=== PATIENT | female | born 1950 | race Caucasian/White ===

== ENCOUNTER 2019-06-24 19:57 | Inpatient (IN) | payer BC ==
--- NOTE | 2019-06-24 23:03 | RAD ---
EXAM: Portable chest PROVIDED CLINICAL HISTORY: Shortness of breath COMPARISON: None FINDINGS: Cardiac and mediastinal silhouette is within normal limits. No focal consolidation, pleural fluid or pneumothorax evident. Vascular calcification is seen involving the aortic arch. IMPRESSION: No evidence for an acute cardiopulmonary process.
[2019-06-24 23:05] LABS: #Basophils 0.1 thou/uL (0.0-0.2); #Lymphocytes 1.1 thou/uL (1.20-3.40); #Monocytes 0.4 thou/uL (0.11-0.59); #Neutrophils 15.6 thou/uL (1.40-6.50); %Basophils 0.3 % (0.0-1.0); %Eosinophils 0.1 % (0.0-10.0); %Lymphocytes 6.5 % (21.0-51.0); %Neutrophils 91.1 % (42.0-75.0); Hemoglobin 15.4 g/dL (12.0-16.0); Mean Corpuscular HGB CONC 33.3 g/dL (32.0-36.0); Mean Corpuscular Hemoglobin 32.3 pg (27.0-31.0); Platelet Count 238 thou/uL (130-400); RBC Distribution Width 12.4 % (11.5-14.5); Red Blood Cell (RBC) Count 4.77 mill/uL (4.20-5.40); White Blood Cell (WBC) Count 17.1 thou/uL (4.8-10.8)
[2019-06-24 23:24] LABS: ALT (SGPT) 17 U/L (8-55); AST (SGOT) 15 U/L (5-34); Albumin 4.6 g/dL (3.4-4.8); Alkaline Phosphatase 100 U/L (40-110); Anion Gap 14 mmol/L (10-20); BUN (Urea Nitrogen) 10 mg/dL (9.8-20.1); Bilirubin, Total 0.5 mg/dL (0.2-1.2); Calc. Creatinine Clearance 0 mL/min (70-130); Calcium 9.4 mg/dL (7.8-10.44); Carbon Dioxide 26 mmol/L (23-31); Chloride 99 mmol/L (98-107); Estimated GFR-MDRD Greater than 90; Globulin 2.9 g/dL (2.4-3.5); Glucose 154 mg/dL (80-115); Potassium 3.6 mmol/L (3.5-5.1); Protein, Total 7.5 g/dL (6.0-8.3); Sodium 135 mmol/L (136-145)
[2019-06-24] MEDS ORDERED: Albuterol Sulfate 2.5 mg/3 ml Neb ONE (23:48)
[2019-06-24 23:52] LABS: CKMB 1.9 ng/mL (0-6.6)
[2019-06-25] MEDS ORDERED: methylPREDNISolone Sod Succ/PF 125 MG/2 ML VIAL ONE (00:13)
[2019-06-25] MEDS ORDERED: cefTRIAXone\\ROCEPHIN 2 GM VIAL ONE (00:13)
[2019-06-25] MEDS ORDERED: Aspirin Chewable 81 MG TAB ONE (00:13)
[2019-06-25] MEDS ORDERED: Bacteriostatic Water 30 ML VIAL FS PRN (01:16)
[2019-06-25 02:09] VITALS: BMI 25.2
[2019-06-25 02:44] LABS: Troponin I 0.321 ng/mL (< 0.028)
[2019-06-25] MEDS ORDERED: Enoxaparin Sodium 80 MG/0.8 ML SYRINGE SC SCH (03:15)
[2019-06-25] MEDS: methylPREDNISolone Sod Succ 40 MG VIAL IVP SCH ×3 (05:25→19:06)
[2019-06-25] MEDS ORDERED: methylPREDNISolone Sod Succ/PF 125 MG/2 ML VIAL IVP SCH (06:00)
[2019-06-25] MEDS ORDERED: ALPRAZolam 0.25 MG TAB PO PRN (08:53)
[2019-06-25] MEDS ORDERED: Hydrochlorothiazide 25 MG TAB PO SCH (09:00)
--- NOTE | 2019-06-25 09:11 | CT ---
PRELIMINARY REPORT/[facility]/EMERGENCY AFTER HOURS PROCEDURE: EXAM: CTA Chest with Intravenous Contrast CLINICAL HISTORY: SOB BEGAN THIS AFTERNOON HX ASTHMA 0.55 DDIMER PT. SMOKE TECHNIQUE: Axial CTA images of the chest with intravenous contrast. MIP reconstructed images were created and re viewed. CONTRAST: With; ISOVUE 370,100mL COMPARISON: None provided. FINDINGS: PULMONARY ARTERIES No intraluminal filling defect suspicious for PE. AORTA No thoracic aortic aneurysm or dissection. LUNGS The lungs are clear. No pulmonary mass. No focal airspace consolidation. PLEURAL SPACES No pleural effusion. No pneumothorax. HEART AND MEDIASTINUM No cardiomegaly. No significant pericardial effusion. LYMPH NODES No lymphadenopathy. BONES No focal osseous abnormality or acute fracture. CHEST WALL AND UPPER ABDOMEN There is a cystic area in the left kidney measuring about 1.7 cm. MISCELLANEOUS: There is a 2 x 2.5 cm nodular density in the right thyroid gland. IMPRESSION: 1. There is a 2 x 2.5 cm nodular density in the right thyroid gland. 2. There is a cystic area in the left kidney measuring about 1.[address] evidence of pulmonary embolism. ELECTRONICALLY SIGNED BY: Ana Maria Washington MD Jun 25, 2019 1:12:29 AM STATISTICS PROFESSOR This report is intended for review by the ordering physician only, in accordance of law. If you recei ve this report in error, please call [facility] at [phone]. FINAL REPORT CT ANGIOGRAM CHEST WITH CONTRAST: HISTORY: Shortness of breath. COMPARISON: None. FINDINGS: CT angiogram chest performed after the intravenous administration of contrast. 3D rendering was provi ded. Findings and impression are concordant with the preliminary report by [facility]. POS: OFF
[2019-06-25] MEDS: Atorvastatin Calcium 20 MG TAB PO SCH (09:22)
[2019-06-25] MEDS: Losartan 25 MG TAB PO SCH (09:23)
[2019-06-25] MEDS ORDERED: Regadenoson 0.4 MG/5 ML SYRINGE ONE (09:25)
[2019-06-25] MEDS ORDERED: Loratadine 10 MG TAB PO SCH (10:30)
[2019-06-25] MEDS ORDERED: Sodium Chloride 0.9% 500 ML IV SCH (10:30)
[2019-06-25] MEDS ORDERED: Acetaminophen 325 MG TAB PO PRN (11:11)
[2019-06-25] MEDS ORDERED: Ondansetron PF 4 MG/2 ML Vial IVP PRN (11:11)
[2019-06-25] MEDS ORDERED: Ondansetron ODT 4 MG TAB PO PRN (11:11)
[2019-06-25] MEDS ORDERED: Calcium Carbonate 500 MG ChewTAB PO PRN (11:11)
--- NOTE | 2019-06-25 11:44 | HP ---
PRIMARY CARE PHYSICIAN: Dr. Jono Stewart. CHIEF COMPLAINT: Shortness of breath. HISTORY OF PRESENT ILLNESS: The patient is a 68-year-old female with asthma, hypertension, and hyperlipidemia, who presented to the emergency room with above complaints. The shortness of breath started yesterday afternoon. It is progressively getting worse. She was short of breath on minimal exertion. She also had dry cough. No orthopnea or paroxysmal nocturnal dyspnea reported. She had intermittent chest tightness along with wheezing as well. No sick contacts, fever, or chills reported. She denies recent immobilization travel. She tried using inhaler without much relief. She then presented to the emergency room. In the emergency room, her initial O2 saturation was 88% on room air with temperature of 98.5, respirations of 19, pulse of 80, blood pressure of 188/79. Her O2 saturation at the time of my evaluation is 91% on 2 L nasal cannula. PAST MEDICAL HISTORY: 1. Hypertension. 2. Asthma. 3. Hyperlipidemia. 4. Tobacco dependence. 5. Vulvar cancer status post vulvectomy. PAST SURGICAL HISTORY: 1. Vulvectomy. 2. Colonoscopy. 3. Breast biopsy. ALLERGIES: NO KNOWN DRUG ALLERGIES. MEDICATIONS: Current home medications; 1. Albuterol inhaler as needed. 2. Losartan-hydrochlorothiazide 100/12.5 daily. 3. Pravastatin 80 mg daily. FAMILY HISTORY: Father with diabetes, skin cancer. Mother with hypertension, coronary artery disease. SOCIAL HISTORY: The patient currently lives at home with her family. She continues to smoke on and off. She is full code and makes her own decision without help of her . REVIEW OF SYSTEMS: All other review of systems was reviewed and were found negative. PHYSICAL EXAMINATION: VITAL SIGNS: As discussed above. GENERAL: A 68-year-old female, anxious, in mild respiratory distress, able to complete short phrases. HEENT: Head, atraumatic and normocephalic. Sclerae anicteric. Moist mucous membranes. No oral lesion. NECK: Supple. No JVD appreciated. No carotid bruit. LUNGS: Mild accessory muscle use with scattered rhonchi and wheezing. No rales appreciated. HEART: S1 and S2 present. Regular. No rubs or gallops. ABDOMEN: Soft, nontender. Bowel sounds present. No rebound or guarding. No costovertebral angle tenderness. EXTREMITIES: No edema or calf tenderness. NEUROLOGY: Grossly nonfocal. Moves all 4 extremities. PSYCHIATRY: Alert, awake, and oriented x3. SKIN: Warm and dry. LYMPH NODES: No palpable lymph nodes in the neck. PERIPHERAL VASCULAR: Radial pulses palpable bilaterally. MUSCULOSKELETAL: No joint swelling or tenderness. LABORATORY FINDINGS: CBC showed WBC 17.1 with hemoglobin 15.4, hematocrit 46.3, platelet of 238. D-dimer was 0.55. Chemistry showed sodium of 135, potassium of 3.6, chloride 99, bicarb 26, BUN 10, creatinine 0.62. Troponin was 0.380. Lactic acid 1.2. BNP 11.4. IMAGING STUDIES: Chest x-ray by my review was negative for infiltrate or edema. CT angiogram of the chest was negative for pulmonary embolism. It showed nodule in the right thyroid gland and left renal cyst. EKG by my review showed sinus rhythm without significant ST-T wave changes. IMPRESSION: 1. Acute hypoxic respiratory failure. 2. Asthma exacerbation. 3. Elevated troponin suspected due to type 2 myocardial infarction. 4. Hyponatremia. 5. Hypertension. 6. Hyperlipidemia. PLAN: The patient will be monitored on the telemetry unit. She will require 2 to 3 days for stabilization. She still is saturating 91% on 2 L nasal cannula. We will start her on IV steroids along with empiric antibiotics as well. She received a dose of ceftriaxone in the emergency room. She also received one dose of Lovenox in the ER. We will consult Cardiology and Pulmonary. Recheck labs in a.m. Repeat troponin in a.m. We will add Mucinex. Resume selected home medications. Echocardiogram will be obtained. The patient and the family understand the above plan of care. Job ID: [id number]
[2019-06-25] MEDS: Fluticasone Propionate Nasal Spray 16 gm Bottle NASAL SCH (14:39)
--- NOTE | 2019-06-25 14:57 | NM ---
MYOCARDIAL PERFUSION SCAN: The patient was given 10 mCi of technetium sestamibi for rest imaging and 27 mCi for stress imaging. Patient was stressed according to Lexiscan protocol. INDICATION: Shortness of breath. Abnormal CIE. Left ventricle was imaged with SPECT imaging. CT attenuation images obtained. FINDINGS: Normal activity seen on stress and rest images. No evidence of reversible ischemia. Wall motion is normal. Ejection fraction recorded at over 80%. IMPRESSION: Negative sestamibi stress test. POS: DANIELLA
[2019-06-25] MEDS: guaiFENesin ER 600 MG TAB PO SCH (20:19)
[2019-06-25] MEDS: Saccharomyces boulardii 250 MG CAP PO SCH (20:19)
[2019-06-25] MEDS: Famotidine 20 MG TAB PO SCH (20:19)
[2019-06-25] MEDS: ALPRAZolam 0.25 MG TAB PO PRN (20:20)
[2019-06-26] MEDS: cefTRIAXone\\ROCEPHIN 1 GM in Sodium Chloride 0.9% 100 ML IVPB SCH (00:20)
--- NOTE | 2019-06-26 01:06 | CON ---
DATE OF CONSULTATION: 06/25/2019 SERVICE: Pulmonary Medicine. REASON FOR CONSULTATION: Shortness of breath. HISTORY OF PRESENT ILLNESS: The patient is a 68-year-old white female with past medical history significant for absolutely nothing. She has about a 10-15 pack year history of smoking. She has no formal diagnosis of COPD or asthma. She is not on any inhalers at home. Usually, she does not have any dyspnea on exertion, or significant wheezing or difficult difficulty breathing. Either way, she was in her usual state of health until Thursday. At that point, she started having upper respiratory tract congestion, sniffing, sneezing and itchy watery eyes. She had increasing congestion through the nose and mouth. She then over the course of the week developed a little bit of increasing wheezing, dyspnea that limited her activity, and a cough. Towards the end of the week, it is productive of yellow phlegm. She had more severe dyspnea that limited her activities. As such, she presented to the emergency department. There are some routine laboratory workup suggested that she had elevated troponin. As such, she spent the last day and a half getting some stress test. She has no complaints of fevers or chills. She did not have any nausea, vomiting or diarrhea. She does not have any hot, red swollen joints, rashes or arthralgias. Otherwise, she is in her usual state of health. Since being in the hospital, she got put on steroids, antibiotics, and nebulized medications, and she feels nearly 100% better. She has still a little bit of rattling in the chest, but does not have any significant dyspnea that limits her activity at this point, although she has not been too terribly active, because she has been tethered to the wall with oxygen. PAST MEDICAL HISTORY: 1. Hypertension. 2. Dyslipidemia. 3. Tobacco abuse. 4. Possible history of asthma, not currently on medications. 5. Vulvar cancer, status post vulvectomy. PAST SURGICAL HISTORY: 1. Vulvectomy. 2. Colonoscopy. 3. Breast biopsy. ALLERGIES: NO KNOWN DRUG ALLERGIES. MEDICATIONS: List of her inpatient medications were reviewed. No specific updates were made at this time. FAMILY HISTORY: Noncontributory. SOCIAL HISTORY: She quit smoking 5 days ago, but prior to that 15 pack year history of smoking. Denies any significant alcohol or illicit drug use. She has no exposure to chemicals, dust, asbestos, or tuberculosis. REVIEW OF SYSTEMS: General, head, ears, eyes, nose, throat, cardiovascular, respiratory, GI, , musculoskeletal, neurologic, and skin is negative except as mentioned in the HPI. PHYSICAL EXAMINATION: VITAL SIGNS: Afebrile, pulse 92, blood pressure 145/53, respirations 18, saturation 92% on 1 L nasal cannula. GENERAL: The patient is awake and alert, in no apparent distress. LUNGS: There is excellent air entry. There is a slightly prolonged expiratory phase. No wheezing is appreciated. Careful auscultation did not demonstrate any crackles though she had extensive rhonchi throughout bilateral lung hernandez. HEART: Normal rate. Regular. ABDOMEN: Soft, nontender, nondistended. Bowel sounds are positive. MUSCULOSKELETAL: No cyanosis or clubbing. There is no pitting in the bilateral lower extremities. NEUROLOGIC: Grossly nonfocal. : No [place]. LABORATORY DATA: WBC 17.1, hemoglobin 15.4, platelets 238,000. D-dimer 0.55. Troponin is gently up trending to 0.380. BNP 11, lactate 1.2. Liver function studies and basic metabolic profile are otherwise unremarkable. IMAGING: Echocardiogram demonstrates normal ejection fraction. No significant valvular abnormalities are appreciated. There is no significant diastology. Nuclear stress test demonstrates full negative sestamibi stress test. CTA of the chest demonstrates significant mucus plugging throughout bilateral lung hernandez. It is more severe in the dependent regions of the lung. There is thickening of the bronchi. That being said, I do not see any overt consolidating changes present. There is certainly no PE. ASSESSMENT: 1. Acute hypoxic respiratory failure, mild. 2. Acute bronchitis. 3. [id number] myocardial infarction. DISCUSSION AND PLAN: The patient can complete a 5-day course of antibiotics and steroids directed at lung related issues. She can go out of the hospital on p.r.n. nebulized medications, or an albuterol HFA pump per her discretion. She can follow up with Pulmonary in the outpatient setting to determine whether or not additional interventions and underlying lung disease is required. That being said, for the time being, I am inclined to believe this is a one of acute bronchitis event and it is less likely to represent asthma or severe chronic underlying disease. Certainly, within the next 6 months to 2 years, if she has a repeat event, additional investigation would be warranted. Pulmonary will follow, intermittently during this hospital stay. That being said, from my perspective, as soon as she is off oxygen, and her dyspnea is close to baseline, she can be considered for discharge. If she is in-house on Thursday, I will see her then. Should she have increasing respiratory difficulties, please notify me sooner. Job ID: [id number]
[2019-06-26] MEDS ORDERED: Enoxaparin Sodium 80 MG/0.8 ML SYRINGE SC SCH (01:15)
[2019-06-26 01:49] LABS: Anion Gap 13 mmol/L (10-20); BUN (Urea Nitrogen) 21 mg/dL (9.8-20.1); Calc. Creatinine Clearance 80 mL/min (70-130); Calcium 9.7 mg/dL (7.8-10.44); Carbon Dioxide 28 mmol/L (23-31); Chloride 100 mmol/L (98-107); Estimated GFR-MDRD 82; Glucose 175 mg/dL (80-115); Magnesium 2.4 mg/dL (1.6-2.6); Potassium 3.3 mmol/L (3.5-5.1); Sodium 138 mmol/L (136-145)
[2019-06-26 05:23] LABS: ALT (SGPT) 18 U/L (8-55); AST (SGOT) 22 U/L (5-34); Albumin 4.1 g/dL (3.4-4.8); Alkaline Phosphatase 84 U/L (40-110); Anion Gap 12 mmol/L (10-20); BUN (Urea Nitrogen) 22 mg/dL (9.8-20.1); Bilirubin, Total 0.3 mg/dL (0.2-1.2); Calc. Creatinine Clearance 85 mL/min (70-130); Calcium 9.6 mg/dL (7.8-10.44); Carbon Dioxide 29 mmol/L (23-31); Chloride 102 mmol/L (98-107); Estimated GFR-MDRD 88; Globulin 2.7 g/dL (2.4-3.5); Glucose 146 mg/dL (80-115); Magnesium 2.4 mg/dL (1.6-2.6); Potassium 3.5 mmol/L (3.5-5.1); Protein, Total 6.8 g/dL (6.0-8.3); Sodium 139 mmol/L (136-145)
[2019-06-26 05:39] LABS: Mean Corpuscular HGB CONC 33.4 g/dL (32.0-36.0); Mean Corpuscular Hemoglobin 32.6 pg (27.0-31.0); Mean Corpuscular Volume 97.6 fL (78.0-98.0); Platelet Count 238 thou/uL (130-400); RBC Distribution Width 12.6 % (11.5-14.5); Red Blood Cell (RBC) Count 4.61 mill/uL (4.20-5.40); White Blood Cell (WBC) Count 22.3 thou/uL (4.8-10.8)
[2019-06-26 06:10] LABS: Band 3 % (5-11); Lymphocytes 4 % (21-51); MDiff Complete? YES; Monocytes 4 % (0-10); Neutrophil 89 % (42-75); Platelet Morphology Comment Appears Adequate; RBC Morphology Normal
--- NOTE | 2019-06-26 06:12 | CON ---
DATE OF CONSULTATION: 06/25/2019 INDICATION FOR CONSULTATION: This is a 68-year-old female with no previous cardiac history that she is aware of, who has presented to the hospital after having increasing shortness of breath and has a history of COPD and had abnormal cardiac enzymes. We were asked to see her. 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 She used her inhaler, which did not work. When she tried a nebulizer, which she has had for quite some time, the machine itself did not work and she continued to have shortness of breath and she presented to the emergency room. She does have problems with allergies to cedar and also various environmental type materials such as hay and grass and she has had increasing shortness of breath and presented to the emergency room. She denied any chest pain. She has no previous history of cardiac problems, but the troponin I was 0.138 and then 0.321 and again 0.38. Her BNP was 11.4. She does have risk factors for coronary artery disease, which include continued tobacco abuse. She smokes 3 to 4 cigarettes a day and on the weekend, may smoke up to one-fourth to half pack a day. She smoked for about 30 years. She also has a history of hypertension. PAST MEDICAL HISTORY: Significant for COPD or restrictive airway disease, which is seasonal. She has a history of hyperlipidemia. She also has history of hypertension. She has had history of vulvar cancer with vulvectomy. SOCIAL HISTORY: She occasionally drinks beer. She continues to smoke cigarettes as noted above. FAMILY HISTORY: Noncontributory. ALLERGIES: SHE IS ALLERGIC TO SEASONAL MATERIALS, BUT NO DRUG ALLERGIES. MEDICATIONS: At home included: 1. Losartan. 2. Pravastatin. 3. Albuterol. REVIEW OF SYSTEMS: A 12-point review of systems is only positive for the shortness of breath. She denied any other significant complaints. PHYSICAL EXAMINATION: GENERAL: Reveals a well-developed, well-nourished female. She is in no acute distress. VITAL SIGNS: She is afebrile. Blood pressure is 168/85 and earlier was 157/68, heart rate is anywhere between 98 to 100 and shows a normal sinus rhythm, respiratory rate is about 18, and O2 saturations were stable. HEENT: Shows the head to be normocephalic and atraumatic. Carotid pulses are present. I did not hear any significant bruits. CHEST: Her chest has diffuse rhonchi throughout and expiratory wheezing, at least from the base jail up to the mid chest area. CARDIOVASCULAR: Reveals a regular rate and rhythm. I did not hear any significant murmurs, heaves, thrills, bruits, or rubs. ABDOMEN: Soft and nontender with positive bowel sounds. No organomegaly or masses are noted. Femoral pulses are present. EXTREMITIES: Showed no clubbing, cyanosis, or edema. Pedal pulses are present. The one on the right side is somewhat decreased compared to the left side, but pulses are present. NEUROLOGIC: There are no gross focal motor deficits. LABORATORY DATA: Shows a WBC of 17.1, hemoglobin 15.4, and platelet count 238,000. Sodium was 135, potassium 3.6, BUN was 10 with a creatinine 0.62, and blood sugar 154. I did not have any other blood sugar levels, this will need to be repeated. She does not give any history of having diabetes, but blood sugar is obviously elevated. Troponin I as noted above with a BNP of only 11.4. IMPRESSION AND PLAN: 1. Elderly female with chronic obstructive pulmonary disease exacerbation. She has continued to smoke. She was placed on antibiotics, most likely has some bronchitis as well as her allergies and this will be dealt with by the Primary Care Service. She has seen Dr. Elaine in the past and Pulmonary consult may be indicated. At least as an outpatient, she should follow up with Pulmonology and she has been strongly encouraged to stop smoking. 2. History of tobacco abuse. I did tell she absolutely needs to stop smoking altogether. 3. History of abnormal cardiac enzymes. This appears to be a type 2 myocardial infarction, most likely due to demand ischemia associated with the work of breathing with her severe chronic obstructive pulmonary disease exacerbation yesterday. 4. History of hypertension. May need to change her medications. I am not certain whether she got her medications for her hypertension yet or not, but obviously blood pressure is elevated and will need to be addressed also. 5. History of hypercholesterolemia. She is on pravastatin. We will need to check a cholesterol level to see whether or not the medication is adequate or not. If not, we will need to change medications or increase the dose. She has been placed on atorvastatin since being in the hospital. She has also been given Lovenox therapeutic dose of 70 mg for the abnormal cardiac enzymes. At this time, I would suggest she undergo stress testing. The enzymes are still indeterminate and if there is no indication that she has any ischemia, then she could be discharged and further evaluation could be done as an outpatient. If the stress test is grossly abnormal, then she may need to undergo further evaluation by cardiac catheterization once her pulmonary status is stable. Job ID: [id number]
[2019-06-26 06:21] LABS: CKMB 5.6 ng/mL (0-6.6)
[2019-06-26] MEDS: Enoxaparin Sodium 80 MG/0.8 ML SYRINGE SC SCH ×2 (08:55→20:09)
[2019-06-26] MEDS: Atorvastatin Calcium 20 MG TAB PO SCH (08:55)
[2019-06-26] MEDS: predniSONE 20 MG TAB PO SCH (08:55)
[2019-06-26] MEDS: Famotidine 20 MG TAB PO SCH ×2 (08:56→20:10)
[2019-06-26] MEDS: guaiFENesin ER 600 MG TAB PO SCH ×2 (08:56→20:10)
[2019-06-26] MEDS: Loratadine 10 MG TAB PO SCH (08:56)
[2019-06-26] MEDS: Losartan 25 MG TAB PO SCH (11:36)
--- NOTE | 2019-06-26 11:51 | PDOC.CPN ---
- Subjective Date: 06/26/19 Time: 11:55 Interval history: The pt seen and examined. No overnight events. No cardiac complaints. - Objective Allergies/Adverse Reactions: Allergies Allergy/AdvReac Type Severity Reaction Status Date / Time No Known Drug Allergies Allergy Verified 06/25/19 02:11 Visit Medications: Current Medications Acetaminophen (Tylenol) 650 mg PO Q4H PRN PRN Reason: Headache/Fever/Mild Pain (1-3) Albuterol/Ipratropium (Duoneb) 3 ml NEB Q4H PRN PRN Reason: SOB &/or Wheezing Albuterol/Ipratropium (Duoneb) 3 ml NEB [id number] [facility] Last Admin: 06/26/19 06:42 Dose: 3 ml Alprazolam (Xanax) 0.25 mg PO Q6H PRN PRN Reason: Anxiety Last Admin: 06/25/19 20:20 Dose: 0.25 mg Atorvastatin Calcium (Lipitor) 20 mg PO DAILY [facility] Last Admin: 06/26/19 08:55 Dose: 20 mg Calcium Carbonate (Tums) 1,000 mg PO Q4H PRN PRN Reason: Heartburn or Indigestion Diltiazem HCl (Cardizem) 30 mg PO ACHS [facility] Diltiazem HCl (Cardizem) 30 mg PO ONE [facility] Enoxaparin Sodium (Lovenox) 70 mg SC 0900,2100 [facility] Last Admin: 06/26/19 08:55 Dose: 70 mg Famotidine (Pepcid) 20 mg PO BID [facility] Last Admin: 06/26/19 08:56 Dose: 20 mg Fluticasone Propionate (Flonase Nasal [place]) 0 gm NASAL Q24HR [facility] Last Admin: 06/25/19 14:39 Dose: Not Given Guaifenesin (Mucinex) 600 mg PO Q12HR [facility] Last Admin: 06/26/19 08:56 Dose: 600 mg Ceftriaxone Sodium 1 gm/ (Sodium Chloride) 100 mls @ 200 mls/hr IVPB 0100 [facility] Last Admin: 06/26/19 00:20 Dose: 100 mls Loratadine (Claritin) 10 mg PO DAILY [facility] Last Admin: 06/26/19 08:56 Dose: 10 mg Nebivolol (Bystolic) 2.5 mg PO ONE [facility] Nebivolol (Bystolic) 2.5 mg PO DAILY [facility] Ondansetron HCl (Zofran Odt) 4 mg PO Q6H PRN PRN Reason: Nausea/Vomiting Ondansetron HCl (Zofran) 4 mg IVP Q6H PRN PRN Reason: Nausea/Vomiting Prednisone (Prednisone) 40 mg PO QAM[facility] Stop: 06/30/19 08:01 Last Admin: 06/26/19 08:55 Dose: 40 mg Saccharomyces Boulardii (Florastor) 250 mg PO [facility] Last Admin: 06/25/19 20:19 Dose: 250 mg Sodium Chloride (Flush - Normal Saline) 10 ml IVF PRN PRN PRN Reason: Saline Flush Sterile Water (Bacteriostatic Water) 1 ml FS PRN PRN PRN Reason: RECONSTITUTION Vital Signs & Weight: Vital Signs Temp Pulse Resp BP BP Pulse Ox 06/26/19 08:50 101/47 L 97 06/26/19 07:27 98.6 F 76 20 112/48 L 94 L 06/26/19 06:45 95 06/26/19 06:42 84 16 06/26/19 03:22 98.5 F 85 18 112/49 L 94 L 06/26/19 01:05 144 H 20 115/60 93 L 06/26/19 00:29 97.7 F 85 20 107/45 L 93 L Weight 147 lb - Physical Exam General: alert & oriented x3 HEENT: mucus membranes moist Neck: supple neck Cardiac: regular rate and rhythm, S1/S2 Lungs: clear to auscultation, decreased breath sounds Neuro: cranial nerve 2-12 intact Abdomen: unremarkable Extremities: no edema - Labs Result Diagrams: 06/26/19 04:42 06/26/19 04:42 Troponin/CKMB CK-MB (CK-2) 5.6 ng/mL (0-6.6) 06/26/19 04:42 Troponin I 0.154 ng/mL (< 0.028) H 06/26/19 04:42 - Telemetry Sinus rhythms and dysrhythmias: sinus rhythm - Assessment/Plan Assessment/Plan: 1. SOB - 2/2 acute bronchitis; Stress test and Echo were within normal ranges; the pt was recommended to f/u with Dr Elaine as outpt 2. Prox Afib - converted back to SR in a few hours; on Lovenox BID; Diltiazem was started from today; will start Bystolic 2.5mg qd from today 3. Asthma 4. Tobacco abuse 5. NSTEMI type 2 2/2 severe Bronchitis and cough - asymptomatic; normal stress test 6. HLD - on statin MAR reviewed
[2019-06-26] MEDS ORDERED: Nebivolol HCl 2.5 MG TAB PO SCH (12:00)
[2019-06-26] MEDS: ALPRAZolam 0.25 MG TAB PO PRN (12:58)
[2019-06-26] MEDS: Fluticasone Propionate Nasal Spray 16 gm Bottle NASAL SCH (12:59)
[2019-06-26] MEDS ORDERED: Nicotine 14 MG PATCH TD PRN (13:00)
--- NOTE | 2019-06-26 13:24 | PDOC.HOSPP ---
- Subjective Encounter Date: 06/26/19 Encounter Time: 12:00 Subjective: Patient seen and examined for Resp failure. Productive cough +. SOB improving. No fever or chills. No new complaints. Overnight events noted - Objective Vital Signs & Weight: Vital Signs (12 hours) Temp Pulse Resp BP Pulse Ox 06/26/19 11:35 98.4 F 96 28 H 142/61 H 94 L 06/26/19 08:50 101/47 L 97 06/26/19 07:27 98.6 F 76 20 112/48 L 94 L 06/26/19 06:45 95 06/26/19 06:42 84 16 06/26/19 03:22 98.5 F 85 18 112/49 L 94 L Weight Weight 147 lb I&O: 06/25/19 06/26/19 06/27/19 06:59 06:59 06:59 Intake Total 200 1320 240 Output Total 500 500 Balance -300 820 240 Result Diagrams: 06/26/19 04:42 06/26/19 04:42 EKG Reviewed by me: Yes (Tele SR) Hospitalist ROS - Review of Systems Respiratory: reports: cough, SOB with excertion, sputum, wheezing. denies: dry , shortness of breath, hemoptysis, pleuritic pain, other Cardiovascular: denies: chest pain, palpitations, orthopnea, paroxysmal noc. dyspnea, edema, light headedness, other - Medication Medications: Active Medications Generic Name Dose Route Start Last Admin Trade Name Freq PRN Reason Stop Dose Admin Albuterol/Ipratropium 3 ml 06/26/19 01:00 06/26/19 06:42 Duoneb NEB 3 ml [id number] [facility] Administration Alprazolam 0.25 mg 06/25/19 10:31 06/26/19 12:58 Xanax PO 0.25 mg Q6H PRN Administration Anxiety Atorvastatin Calcium 20 mg 06/25/19 09:00 06/26/19 08:55 Lipitor PO 20 mg DAILY [facility] Administration Enoxaparin Sodium 70 mg 06/26/19 09:00 06/26/19 08:55 Lovenox SC 70 mg 0900,2100 [facility] Administration Famotidine 20 mg 06/25/19 21:00 06/26/19 08:56 Pepcid PO 20 mg BID [facility] Administration Fluticasone Propionate 0 gm 02/29/20 13:00 06/26/19 12:59 Flonase Nasal [place] NASAL Not Given Q24HR [facility] Guaifenesin 600 mg 06/25/19 21:00 06/26/19 08:56 Mucinex PO 600 mg Q12HR [facility] Administration Ceftriaxone Sodium 1 gm/ 100 mls @ 200 mls/hr 06/26/19 01:00 06/26/19 00:20 Sodium Chloride IVPB 100 mls 0100 [facility] Administration Loratadine 10 mg 06/26/19 09:00 06/26/19 08:56 Claritin PO 10 mg DAILY [facility] Administration Nebivolol 2.5 mg 06/26/19 12:00 06/26/19 12:57 Bystolic PO 06/26/19 14:00 2.5 mg NOW [facility] Administration Prednisone 40 mg 06/26/19 08:00 06/26/19 08:55 Prednisone PO 06/30/19 08:01 40 mg QAM-WM [facility] Administration Saccharomyces Boulardii 250 mg 06/25/19 21:00 06/25/19 20:19 Florastor PO 250 mg HS [facility] Administration - Exam General Appearance: NAD Neck: supple, no JVD Heart: RRR, no gallops, no rubs, normal peripheral pulses Respiratory: no rales, no ronchi, rhonchi, wheezes Gastrointestinal: soft, non-tender, non-distended, normal bowel sounds Extremities: no cyanosis, no clubbing Neurological: cranial nerve grossly intact, no new deficit Psychiatric: normal affect, A&O x 3 Hosp A/P - Plan DVT proph w/SCDs IMPRESSION: 1. Acute hypoxic respiratory failure due to Acute Bronchitis/Asthma exacerbation. 2. New onset A flutter 3. Elevated troponin suspected due to type 2 myocardial infarction. 4. Hyponatremia. 5. Hypertension. 6. Hyperlipidemia. PLAN: Wean O2 Cont Steroids/Atbx Cont Nebs Q6h Lovenox 1 mg/kg - Patient understands the risk associated with anticoag Bystolic started Low dose ASA Cont other meds
[2019-06-26] MEDS: Aspirin 81 mg Enteric Coated Tablet PO SCH (18:13)
[2019-06-26] MEDS: Saccharomyces boulardii 250 MG CAP PO SCH (20:09)
[2019-06-27] MEDS: cefTRIAXone\\ROCEPHIN 1 GM in Sodium Chloride 0.9% 100 ML IVPB SCH (00:39)
[2019-06-27] MEDS: guaiFENesin ER 600 MG TAB PO SCH ×2 (08:55→21:59)
[2019-06-27] MEDS: Losartan 25 MG TAB PO SCH (08:55)
[2019-06-27] MEDS: Famotidine 20 MG TAB PO SCH ×2 (08:55→21:59)
[2019-06-27] MEDS: predniSONE 20 MG TAB PO SCH (08:56)
[2019-06-27] MEDS: Atorvastatin Calcium 20 MG TAB PO SCH (08:56)
[2019-06-27] MEDS: Enoxaparin Sodium 80 MG/0.8 ML SYRINGE SC SCH (08:57)
[2019-06-27] MEDS: Loratadine 10 MG TAB PO SCH (08:57)
[2019-06-27] MEDS: Nebivolol HCl 2.5 MG TAB PO SCH (10:48)
--- NOTE | 2019-06-27 12:46 | PDOC.CPN ---
- Subjective Date: 06/27/19 Time: 12:49 Interval history: The pt seen and examined. No overnight events. No cardiac complaints. She is willing to quit smoking - Objective Allergies/Adverse Reactions: Allergies Allergy/AdvReac Type Severity Reaction Status Date / Time No Known Drug Allergies Allergy Verified 06/25/19 02:11 Visit Medications: Current Medications Acetaminophen (Tylenol) 650 mg PO Q4H PRN PRN Reason: Headache/Fever/Mild Pain (1-3) Albuterol/Ipratropium (Duoneb) 3 ml NEB Q4H PRN PRN Reason: SOB &/or Wheezing Albuterol/Ipratropium (Duoneb) 3 ml NEB [id number] Last Admin: 06/27/19 12:18 Dose: 3 ml Alprazolam (Xanax) 0.25 mg PO Q6H PRN PRN Reason: Anxiety Last Admin: 06/26/19 12:58 Dose: 0.25 mg Aspirin (Ecotrin) 81 mg PO QPM-[facility] Last Admin: 06/26/19 18:13 Dose: 81 mg Atorvastatin Calcium (Lipitor) 20 mg PO DAILY [facility] Last Admin: 06/27/19 08:56 Dose: 20 mg Calcium Carbonate (Tums) 1,000 mg PO Q4H PRN PRN Reason: Heartburn or Indigestion Enoxaparin Sodium (Lovenox) 70 mg SC 0900,2100 [facility] Last Admin: 06/27/19 08:57 Dose: 70 mg Famotidine (Pepcid) 20 mg PO BID [facility] Last Admin: 06/27/19 08:55 Dose: 20 mg Fluticasone Propionate (Flonase Nasal [place]) 0 gm NASAL Q24HR [facility] Last Admin: 06/26/19 12:59 Dose: Not Given Guaifenesin (Mucinex) 600 mg PO Q12HR [facility] Last Admin: 06/27/19 08:55 Dose: 600 mg Ceftriaxone Sodium 1 gm/ (Sodium Chloride) 100 mls @ 200 mls/hr IVPB 0100 [facility] Last Admin: 06/27/19 00:39 Dose: 100 mls Loratadine (Claritin) 10 mg PO DAILY [facility] Last Admin: 06/27/19 08:57 Dose: 10 mg Losartan Potassium (Cozaar) 25 mg PO DAILY [facility] Last Admin: 06/27/19 08:55 Dose: 25 mg Nebivolol (Bystolic) 2.5 mg PO DAILY [facility] Last Admin: 06/27/19 10:48 Dose: 2.5 mg Nicotine (Nicoderm Patch) 14 mg TD Q24HR PRN PRN Reason: Smoking craving Ondansetron HCl (Zofran Odt) 4 mg PO Q6H PRN PRN Reason: Nausea/Vomiting Ondansetron HCl (Zofran) 4 mg IVP Q6H PRN PRN Reason: Nausea/Vomiting Prednisone (Prednisone) 40 mg PO [facility] Stop: 06/30/19 08:01 Last Admin: 06/27/19 08:56 Dose: 40 mg Saccharomyces Boulardii (Florastor) 250 mg PO [facility] Last Admin: 06/26/19 20:09 Dose: 250 mg Sodium Chloride (Flush - Normal Saline) 10 ml IVF PRN PRN PRN Reason: Saline Flush Sterile Water (Bacteriostatic Water) 1 ml FS PRN PRN PRN Reason: RECONSTITUTION Vital Signs & Weight: Vital Signs Temp Pulse Resp BP Pulse Ox 06/27/19 12:18 76 18 94 L 06/27/19 12:14 98.2 F 73 18 119/46 L 92 L 06/27/19 07:22 98.1 F 69 18 145/73 H 100 06/27/19 07:16 73 20 99 06/27/19 03:48 98.4 F 74 18 104/53 L 94 L Weight 147 lb - Physical Exam General: alert & oriented x3 HEENT: mucus membranes moist Neck: supple neck Cardiac: regular rate and rhythm, S1/S2 Lungs: decreased breath sounds, bibasilar rales Neuro: cranial nerve 2-12 intact Abdomen: unremarkable Extremities: no edema - Labs Result Diagrams: 06/26/19 04:42 06/26/19 04:42 Troponin/CKMB CK-MB (CK-2) 5.6 ng/mL (0-6.6) 06/26/19 04:42 Troponin I 0.154 ng/mL (< 0.028) H 06/26/19 04:42 - Telemetry Sinus rhythms and dysrhythmias: sinus rhythm - Assessment/Plan Assessment/Plan: 1. Prox Afib - converted back to SR in a few hours on 06/26/2019; remains in SR; On Bystolic 2.5mg qd; will d/c home with Eliquis 5mg BID; The coupon is given to the pt. d/c home with EVR for 2 wks. 2. SOB - 2/2 acute bronchitis; Stress test and Echo were within normal ranges; the pt was recommended to f/u with Dr Elaine as outpt 3. Asthma 4. Tobacco abuse - she is willing to quit smoking 5. NSTEMI type 2 2/2 severe Bronchitis and cough - asymptomatic; normal stress test 6. HLD - on statin MAR reviewed * The pt is stable to d/c home with 2-wk EVR. The pt will f/u with Dr Stone' office 1 wk after 2wk EVR Pt. seen and eval. by me. I agrew ith the A/P by the WHAT JOB TITLES MEAN. She is still congested but no further arrythmias.. I will see her in the office in about 3 weeks.
[2019-06-27] MEDS: Fluticasone Propionate Nasal Spray 16 gm Bottle NASAL SCH (16:27)
--- NOTE | 2019-06-27 17:01 | EKG ---
Test Reason : Blood Pressure : / mmHG Vent. Rate : 083 BPM Atrial Rate : 083 BPM P-R Int : 182 ms QRS Dur : 092 ms QT Int : 352 ms P-R-T Axes : 074 076 -89 degrees QTc Int : 413 ms Normal sinus rhythm Abnormal ECG No previous ECGs available Confirmed by DR. Mac HUANG ([id number]) on 06/27/2019 5:01:18 PM Referred By: MAE Confirmed By:DR. Mac HUANG
[2019-06-27] MEDS: Aspirin 81 mg Enteric Coated Tablet PO SCH (17:48)
--- NOTE | 2019-06-27 21:25 | PRG ---
DATE OF SERVICE: 06/27/2019 SERVICE: Pulmonary Medicine. INTERVAL HISTORY: The patient is doing really well from respiratory standpoint. Breathing comfortably. That being said, she is still having some challenging time liberating some of the mucus. From time to time, she feels a little bit short of breath and the nebulized medications she is getting give her comfort. At this point, we talked about possibly discharge from the hospital today, but she prefers to stay an additional day. She has been walking and had some degree of dyspnea that limits her activity. That being said, she is currently on room air and has no specific complaints otherwise. PHYSICAL EXAMINATION: VITAL SIGNS: Afebrile, pulse 66, blood pressure 132/63, respirations 18, and saturation 98%, currently on room air. GENERAL: The patient is awake and alert, in no apparent distress. LUNGS: Good air entry bilaterally. There is no wheezing present today. Minimal rhonchi noted, but it cleared with cough. Dependent crackles are slight. HEART: Normal rate, regular. ABDOMEN: Soft, nontender, nondistended. Bowel sounds are positive. MUSCULOSKELETAL: No cyanosis or clubbing. There is no pitting in the bilateral lower extremities. NEUROLOGIC: Grossly nonfocal. ASSESSMENT: 1. Acute hypoxic respiratory failure, resolved. 2. Acute bronchitis. 3. [id number] myocardial infarction. DISCUSSION AND PLAN: We will continue our nebulized medications, steroids, and antibiotics. Cardiology workup is underway. Repeat laboratories will be performed tomorrow morning. I will switch her steroids and antibiotics over to p.o. Once cleared from Cardiology and once the patient appears comfortable with transition to home, she can be considered for discharge. Pulmonary will continue to follow, intermittently while the patient remains inhouse. Job ID: [id number]
[2019-06-27] MEDS: Cefdinir 300 MG CAP PO SCH (21:59)
[2019-06-27] MEDS: Apixaban 5 MG TAB PO SCH (21:59)
[2019-06-27] MEDS: ALPRAZolam 0.25 MG TAB PO PRN (21:59)
[2019-06-27] MEDS: Saccharomyces boulardii 250 MG CAP PO SCH (21:59)
--- NOTE | 2019-06-27 22:33 | PDOC.HOSPP ---
- Subjective Encounter Date: 06/27/19 Encounter Time: 10:00 Subjective: Patient seen and examined for Resp failure. SOB improving. Dry cough +. FORBES. No new complaints. No overnight events - Objective Vital Signs & Weight: Vital Signs (12 hours) Temp Pulse Resp BP Pulse Ox 06/27/19 19:46 66 16 98 06/27/19 15:53 98.0 F 75 18 132/63 93 L 06/27/19 12:18 76 18 94 L 06/27/19 12:14 98.2 F 73 18 119/46 L 92 L Weight Weight 147 lb I&O: 06/26/19 06/27/19 06/28/19 06:59 06:59 06:59 Intake Total 1320 1860 Output Total 500 250 Balance 820 1860 -250 Result Diagrams: 06/26/19 04:42 06/26/19 04:42 EKG Reviewed by me: Yes (Tele SR) Hospitalist ROS - Review of Systems Respiratory: reports: cough, SOB with excertion. denies: dry, shortness of breath, hemoptysis, pleuritic pain, sputum, wheezing, other Cardiovascular: denies: chest pain, palpitations, orthopnea, paroxysmal noc. dyspnea, edema, light headedness, other - Medication Medications: Active Medications Generic Name Dose Route Start Last Admin Trade Name Freq PRN Reason Stop Dose Admin Albuterol/Ipratropium 3 ml 06/26/19 01:00 06/27/19 19:46 Duoneb NEB 3 ml [id number] [facility] Administration Alprazolam 0.25 mg 06/25/19 10:31 06/27/19 21:59 Xanax PO 0.25 mg Q6H PRN Administration Anxiety Apixaban 5 mg 06/27/19 21:00 06/27/19 21:59 Eliquis PO 5 mg BID HEM[facility] Administration Aspirin 81 mg 06/26/19 17:00 06/27/19 17:48 Ecotrin PO 81 mg QPM-WM [facility] Administration Atorvastatin Calcium 20 mg 06/25/19 09:00 06/27/19 08:56 Lipitor PO 20 mg DAILY [facility] Administration Cefdinir 300 mg 06/27/19 21:00 06/27/19 21:59 Omnicef PO 06/30/19 21:01 300 mg BID [facility] Administration Famotidine 20 mg 06/25/19 21:00 06/27/19 21:59 Pepcid PO 20 mg BID [facility] Administration Fluticasone Propionate 0 gm 06/25/19 13:00 06/27/19 16:27 Flonase Nasal [place] NASAL Not Given Q24HR [facility] Guaifenesin 600 mg 06/25/19 21:00 06/27/19 21:59 Mucinex PO 600 mg Q12HR [facility] Administration Loratadine 10 mg 06/26/19 09:00 06/27/19 08:57 Claritin PO 10 mg DAILY [facility] Administration Losartan Potassium 25 mg 06/27/19 09:00 06/27/19 08:55 Cozaar PO 25 mg DAILY [facility] Administration Nebivolol 2.5 mg 06/27/19 09:00 06/27/19 10:48 Bystolic PO 2.5 mg DAILY [facility] Administration Prednisone 40 mg 06/26/19 08:00 06/27/19 08:56 Prednisone PO 06/30/19 08:01 40 mg QAM-WM [facility] Administration Saccharomyces Boulardii 250 mg 06/25/19 21:00 06/27/19 21:59 Florastor PO 250 mg HS [facility] Administration Sodium Chloride 10 ml 06/25/19 11:11 06/27/19 21:59 Flush - Normal Saline IVF 10 ml PRN PRN Administration Saline Flush - Exam General Appearance: NAD Neck: supple, no JVD Heart: no gallops, no rubs Respiratory: no wheezes, rales, rhonchi Gastrointestinal: non-tender, non-distended, normal bowel sounds Psychiatric: A&O x 3 Hosp A/P - Plan 1. Acute hypoxic respiratory failure due to Acute Bronchitis/Asthma exacerbation. 2. New onset A flutter - in SR 3. Elevated troponin suspected due to type 2 myocardial infarction. 4. Hyponatremia. 5. Hypertension. 6. Hyperlipidemia. PLAN: Change Lovenox to Eliquis Cont Bystolic Cont Nebs/Atbx/Steroids Echo reviewed Cont other meds as above DC in 24-48 hr if stable
[2019-06-28 05:10] LABS: #Basophils 0.1 thou/uL (0.0-0.2); #Eosinphils 0.1 thou/uL (0.0-0.7); #Lymphocytes 3.6 thou/uL (1.20-3.40); #Neutrophils 7.4 thou/uL (1.40-6.50); %Basophils 0.5 % (0.0-1.0); %Eosinophils 0.4 % (0.0-10.0); %Lymphocytes 29.7 % (21.0-51.0); %Monocytes 8.1 % (0.0-10.0); %Neutrophils 61.3 % (42.0-75.0); Hemoglobin 14.1 g/dL (12.0-16.0); Mean Corpuscular Hemoglobin 32.4 pg (27.0-31.0); Mean Corpuscular Volume 98.2 fL (78.0-98.0); Platelet Count 219 thou/uL (130-400); RBC Distribution Width 12.6 % (11.5-14.5); Red Blood Cell (RBC) Count 4.34 mill/uL (4.20-5.40); White Blood Cell (WBC) Count 12.1 thou/uL (4.8-10.8)
[2019-06-28 05:53] LABS: Anion Gap 11 mmol/L (10-20); BUN (Urea Nitrogen) 21 mg/dL (9.8-20.1); Calc. Creatinine Clearance 96 mL/min (70-130); Calcium 8.8 mg/dL (7.8-10.44); Carbon Dioxide 28 mmol/L (23-31); Chloride 106 mmol/L (98-107); Estimated GFR-MDRD Greater than 90; Glucose 102 mg/dL (80-115); Magnesium 2.3 mg/dL (1.6-2.6); Potassium 3.3 mmol/L (3.5-5.1); Sodium 142 mmol/L (136-145)
[2019-06-28] MEDS ORDERED: predniSONE 20 MG TAB PO SCH (08:00)
[2019-06-28] MEDS ORDERED: Potassium Chloride 20 MEQ TAB PO SCH (08:00)
[2019-06-28 08:03] VITALS: BP 151/69; TEMP 98.2
[2019-06-28] MEDS: Atorvastatin Calcium 20 MG TAB PO SCH (08:07)
[2019-06-28] MEDS: Famotidine 20 MG TAB PO SCH (08:07)
[2019-06-28] MEDS: guaiFENesin ER 600 MG TAB PO SCH (08:07)
[2019-06-28] MEDS: Cefdinir 300 MG CAP PO SCH (08:07)
[2019-06-28] MEDS: Apixaban 5 MG TAB PO SCH (08:07)
[2019-06-28] MEDS: Loratadine 10 MG TAB PO SCH (08:07)
[2019-06-28] MEDS: Losartan 25 MG TAB PO SCH (08:07)
[2019-06-28] MEDS: Nebivolol HCl 2.5 MG TAB PO SCH (08:08)
--- NOTE | 2019-06-28 23:04 | DIS ---
DATE OF ADMISSION: 06/25/2019 DATE OF DISCHARGE: 06/28/2019 DISCHARGE DISPOSITION: Home. FOLLOWUP: 1. Follow up with primary care physician, Dr. Jono Stewart in 1 week. 2. Follow up with Cardiology, Dr. Stone and Pulmonary, Dr. Rosario as scheduled. ALLERGIES: NO KNOWN DRUG ALLERGIES. THE PATIENT WAS SEEN AND EXAMINED ON THE DAY OF DISCHARGE. SHORTNESS OF BREATH HAS SIGNIFICANTLY IMPROVED. THE PATIENT DENIES ANY CHEST PAIN. DISCHARGE MEDICATIONS: 1. Pravastatin 80 mg daily. 2. Albuterol inhaler as needed. 3. Mucinex twice a day for 1 week. 4. Tylenol as needed. 5. Eliquis 5 mg b.i.d. 6. Aspirin 81 mg daily. 7. Omnicef 300 mg b.i.d. for next 3 days. 8. DuoNeb as needed. 9. Losartan 25 mg daily. 10. Bystolic 25 mg daily. 11. Prednisone 20 mg twice daily for next 3 days. INPATIENT [employer]: 1. Cardiology, Dr. Stone. 2. Pulmonary, Dr. Davis. BRIEF HOSPITAL COURSE: The patient is a 68-year-old female with hypertension, hyperlipidemia, and asthma presented to the hospital with significant shortness of breath and hypoxia. Her workup was consistent with acute hypoxic respiratory failure secondary to asthma exacerbation with acute bronchitis. She was started on oxygen nebulizer treatment along with antibiotics and steroids. The patient developed transient atrial flutter with rapid ventricular response that spontaneously converted to sinus rhythm. The patient was evaluated by Cardiology as well. She also had elevated troponins with maximum troponin of 0.380. She underwent a Cardiolite stress test that was negative for reversible ischemia. Ejection fraction was over 80%. Echocardiogram showed ejection fraction of 60% to 65% with mild tricuspid regurgitation. A CT angiogram of the chest on admission was negative for pulmonary embolism. The patient understands the risk associated with anticoagulation. She has been cleared by consultants for discharge. FINAL DIAGNOSES: 1. Acute hypoxic respiratory failure secondary to acute bronchitis with asthma exacerbation. 2. New onset atrial flutter with rapid ventricular response, spontaneously converted to sinus rhythm. 3. Elevated troponin suspected due to type 2 myocardial infarction. 4. Hypertension. 5. Hyperlipidemia. 6. 2 x 2.5 cm nodular density in the right thyroid gland. Primary care physician advised to follow. 7. Cystic area in the left kidney measuring 1.7 cm. Primary care physician advised to follow. 8. Hypokalemia, replaced. 9. Hyponatremia. 10. Leukocytosis, probably secondary to acute bronchitis as well as steroids, improving. 11. The patient understands the above plan of care. Job ID: [id number]
== END 2019-06-28 10:05 | disposition home or self-care (01) | DRG 189 ==
LOC: ERS 19:57 → 2SW 06-25 01:51 → OBSVTOIN 06-25 01:51
PROVIDERS: ADMIT Internal Medicine; ATTEND Internal Medicine
DX: J96.01 Acute respiratory failure with hypoxia (principal); I21.A1 Myocardial infarction type 2; J45.901 Unspecified asthma with (acute) exacerbation; I48.92 Unspecified atrial flutter; E87.1 Hypo-osmolality and hyponatremia; J44.1 Chronic obstructive pulmonary disease with (acute) exacerbation; J20.9 Acute bronchitis, unspecified; I10 Essential (primary) hypertension; N28.1 Cyst of kidney, acquired; E78.5 Hyperlipidemia, unspecified; E04.1 Nontoxic single thyroid nodule; I48.0 Paroxysmal atrial fibrillation; F17.210 Nicotine dependence, cigarettes, uncomplicated; E87.6 Hypokalemia; E78.00 Pure hypercholesterolemia, unspecified; D72.828 Other elevated white blood cell count; T38.0X5A Adverse effect of glucocorticoids and synthetic analogues, initial encounter; Z98.890 Other specified postprocedural states
CPT/HCPCS: 36415; 71045; 71275; 78452; 80048; 80053; 82553; 83605; 83735; 83880; 84484; 85025; 85379; 93005; 93010; 93017; 93306; 94640; 94760; 96365; 96375; A9500; J0696; J1650; J2785; J2920; J2930; J3490; J7512; J7611; J7620

== ENCOUNTER 2020-11-01 08:12 | Outpatient (CLI) | payer BC | END 2020-11-01 08:13 | disposition home or self-care (01) | LOC: BICMAMMO 08:12 | PROVIDERS: ATTEND Obstetrics & Gynecology | DX: Z12.31 Encounter for screening mammogram for malignant neoplasm of breast (principal); Z91.89 Other specified personal risk factors, not elsewhere classified | CPT/HCPCS: 77063; 77067 ==

== ENCOUNTER 2022-12-09 13:28 | Outpatient (CLI) | payer MEDICARE, OTHER | END 2022-12-09 13:29 | disposition home or self-care (01) | LOC: DTY/OP 13:28 | PROVIDERS: ATTEND Family Medicine | DX: E11.9 Type 2 diabetes mellitus without complications (principal) | CPT/HCPCS: 97802 ==

== ENCOUNTER 2023-03-09 12:24 | Outpatient (CLI) | payer MEDICARE, OTHER | END 2023-03-09 12:25 | disposition home or self-care (01) | LOC: BICCT 12:24 | PROVIDERS: ATTEND Internal Medicine | DX: Z87.891 Personal history of nicotine dependence (principal) | CPT/HCPCS: 71250 ==

== ENCOUNTER 2023-05-08 06:27 | Day surgery (SDC) | payer MEDICARE, OTHER ==
[2023-05-01 10:25] VITALS: BMI 24.3
[2023-05-08] MEDS ORDERED: CEFAZOLIN 2 GM VIAL ONE ×2 (08:46→12:40)
[2023-05-08] MEDS ORDERED: Sodium Chloride 0.9% 100 ML ONE ×2 (08:46→12:40)
[2023-05-08] MEDS ORDERED: EPINEPHrine 1 MG/ML VIAL ONE (09:13)
[2023-05-08] MEDS ORDERED: Thrombin 5000 UNITS/5 ML VIAL ONE (09:13)
[2023-05-08] MEDS ORDERED: Bupivacaine PF 0.5% 30 ML VIAL ONE (09:13)
[2023-05-08] MEDS ORDERED: fentaNYL PF 100 MCG/2 ML SYRINGE ONE (09:14)
[2023-05-08] MEDS ORDERED: PROPOFOL 20 ML ONE ×2 (09:15→11:30)
[2023-05-08] MEDS ORDERED: Rocuronium Bromide 10 MG/ML (10ML VIAL) ONE (09:19)
[2023-05-08] MEDS ORDERED: Lidocaine 1% PF 5 ML VIAL ONE (09:19)
[2023-05-08] MEDS ORDERED: SUGAMMADEX SODIUM 200 MG/2 ML VIAL ONE (09:19)
[2023-05-08] MEDS ORDERED: Ondansetron PF 4 MG/2 ML Vial ONE (09:19)
[2023-05-08] MEDS ORDERED: HYDROmorphone 0.5 MG/0.5 ML SYRINGE ONE (09:26)
[2023-05-08] MEDS ORDERED: PHENYLEPHRINE-NS 100 MCG/ML 10 ML SYRINGE ONE ×2 (09:50→10:49)
[2023-05-08] MEDS ORDERED: ePHEDrine Sulfate 50 MG/10 ML VIAL ONE (11:04)
[2023-05-08] MEDS ORDERED: HYDROcodone/Acetaminophen 5/325 mg Tablet ONE (12:40)
== END 2023-05-08 13:25 | disposition home or self-care (01) ==
LOC: SDC 06:27
PROVIDERS: ATTEND Neurological Surgery
PROC: 0SG0071 Fusion of Lumbar Vertebral Joint with Autologous Tissue Substitute, Posterior Approach, Posterior Column, Open Approach (ICD-10-PCS; principal; 2023-05-08)
DX: M43.16 Spondylolisthesis, lumbar region (principal); M54.16 Radiculopathy, lumbar region; Z88.5 Allergy status to narcotic agent; I10 Essential (primary) hypertension; E78.5 Hyperlipidemia, unspecified; I73.9 Peripheral vascular disease, unspecified; Z98.890 Other specified postprocedural states; Z90.710 Acquired absence of both cervix and uterus; Z87.891 Personal history of nicotine dependence; Z79.84 Long term (current) use of oral hypoglycemic drugs; Z79.899 Other long term (current) drug therapy; Z79.82 Long term (current) use of aspirin
CPT/HCPCS: 20930; 20936; 22612; 22840; 63012; C1713 ×4; C1889 ×2; J0171; J1170; J2405; J2704; J3490; S0020

== ENCOUNTER 2023-09-07 09:07 | Outpatient (CLI) | payer MEDICARE, OTHER | END 2023-09-07 09:08 | disposition home or self-care (01) | LOC: BICMAMMO 09:07 | PROVIDERS: ATTEND Obstetrics & Gynecology | DX: Z12.31 Encounter for screening mammogram for malignant neoplasm of breast (principal); Z91.89 Other specified personal risk factors, not elsewhere classified | CPT/HCPCS: 77063; 77067 ==

== ENCOUNTER 2025-01-19 11:23 | Outpatient (CLI) | payer MEDICARE, OTHER | END 2025-01-19 11:24 | disposition home or self-care (01) | LOC: ULT 11:23 | PROVIDERS: ATTEND Nurse Practitioner Family | DX: I73.9 Peripheral vascular disease, unspecified (principal) | CPT/HCPCS: 93923 ==